=== PATIENT | male | born 1965 | race Caucasian/White ===

== ENCOUNTER 2017-04-02 05:46 | Day surgery (SDC) | payer OTHER ==
[~2017-04-02] VITALS: Ht 180.3 cm; Wt 89.4 kg
[2017-04-02] MEDS ORDERED: CEFAZOLIN SOD 1 GM/ ISO 50 ML PREMIX IV ONE (07:00)
[2017-04-02] MEDS ORDERED: KETOROLAC TROMETHAMINE 30 MG VIAL IVP ONE (07:03)
[2017-04-02] MEDS ORDERED: NEOSTIGMINE METHYLSULFATE 1 MG/ML, 10 ML VIAL IVP ONE (07:03)
[2017-04-02] MEDS ORDERED: NS 1000 ML BAG IV ONE (07:03)
[2017-04-02] MEDS ORDERED: ROCURONIUM BROMIDE 10 MG/ML (ZEMURON) IV ONE (07:03)
[2017-04-02] MEDS ORDERED: MIDAZOLAM HCL 5 MG/5 ML VIAL IVP ONE (07:03)
[2017-04-02] MEDS ORDERED: METOPROLOL TARTRATE 5 MG/5 ML VIAL IVP ONE (07:03)
[2017-04-02] MEDS ORDERED: GLYCOPYRROLATE 0.2 MG/ML VIAL IJ ONE (07:03)
[2017-04-02] MEDS ORDERED: ONDANSETRON HCL 4 MG/2 ML VIAL IVP ONE (07:03)
[2017-04-02] MEDS ORDERED: BUPIVACAINE /PF 0.25% 30 ML VIAL INJ ONE (07:03)
[2017-04-02] MEDS ORDERED: SEVOFLURANE 15 MIN GAS INH ONE (07:03)
[2017-04-02] MEDS ORDERED: fentaNYL CITRATE/PF 100 MCG/2 ML AMP IVP ONE (07:03)
[2017-04-02] MEDS ORDERED: IOHEXOL 50 ML IV ONE (07:24)
[2017-04-02] MEDS ORDERED: LR 1,000 ML IV SCH (08:03)
[2017-04-02] MEDS ORDERED: ONDANSETRON HCL 4 MG/2 ML VIAL IVP PRN (08:15)
[2017-04-02] MEDS ORDERED: KETOROLAC TROMETHAMINE 30 MG VIAL IVP PRN (08:15)
[2017-04-02] MEDS ORDERED: MEPERIDINE HCL/PF 25 MG/ML DISP.SYRIN IVP PRN ×2 (08:15)
[2017-04-02] MEDS ORDERED: D5/0.45 NS 1,000 ML IV SCH (08:44)
[2017-04-02] MEDS ORDERED: HYDROcodone/ACETAMIN 5-325 MG TAB (NORCO/ VICODIN) PO PRN (08:45)
[2017-04-02] MEDS ORDERED: HYDROmorphone 1 MG INJ. 1 MG/ML AMPUL IVP PRN (08:45)
[2017-04-02] MEDS: MEPERIDINE HCL/PF 25 MG/ML DISP.SYRIN ONE (09:08)
[2017-04-02] MEDS ORDERED: HYDROcodone/ACETAMIN 5-325 MG TAB (NORCO/ VICODIN) ONE (09:48)
[2017-04-02] MEDS: HYDROcodone/ACETAMIN 5-325 MG TAB (NORCO/ VICODIN) PO PRN (09:50)
[2017-04-02 09:54] VITALS: BP_SYST 128
== END 2017-04-02 11:00 | disposition home or self-care (01) ==
LOC: SDS 05:46 → EDSEX 07:30 → SDS 11:00
PROVIDERS: ATTEND Colon & Rectal Surgery
DX: K80.10 Calculus of gallbladder with chronic cholecystitis without obstruction (principal); Z80.3 Family history of malignant neoplasm of breast; Z98.890 Other specified postprocedural states
CPT/HCPCS: 74300; 88304; C1727; C1758; J0690; J1885; J2175; J2250; J2405; J2710; J3010; J3490; J7030; J7120; Q9967